=== PATIENT | male | born 1985 | race Caucasian/White ===

== ENCOUNTER → 2024-07-30 | Outpatient (CLI) | payer SELFPAY ==
--- NOTE | 2024-07-30 18:50 | CT_ITS ---
PROCEDURE: ABDOMEN/PELVIS WITHOUT CONT 07/30/2024 REASON FOR EXAM: DIARRHEA, LLQ PAIN TECHNIQUE: Abdomen and pelvis CT without intravenous contrast. Noncontrast technique limits evaluation of the abdominal and pelvic viscera. Coronal and Sagittal reconstruction series were provided. One or more dose reduction techniques were used (e.g., Automated exposure control, adjustment of the mA and/or kV according to patient size, use of iterative reconstruction technique). PATIENT PREPARATION: Per protocol ORAL CONTRAST TYPE: None. AMOUNT: mL COMPARISON: None. FINDINGS: Diffuse colonic diverticulosis. Mild thickening of the sigmoid colon, probably mild colitis/diverticulitis without perforation or abscess formation. Cholelithiasis without acute cholecystitis. Fat containing umbilical hernia without incarceration. Bilateral fat containing inguinal hernias without incarceration. Mild changes of central mesenteric panniculitis. Benign chronic finding. The visualized lung bases are unremarkable. Normal unenhanced liver. Normal extrahepatic biliary system. Normal unenhanced spleen. Normal pancreas. Normal bilateral adrenal glands. Normal size of the right kidney. There is no right renal mass. There are no right renal calculi. There is no right hydronephrosis. Normal visualized right ureter. Normal size of the left kidney. There is no left renal mass. There are no left renal calculi. There is no left hydronephrosis. Normal visualized left ureter. Normal visualized stomach. Normal small intestine. The appendix is visualized and appears normal. There is no demonstrated peritoneal fluid. Normal abdominal aorta. Normal inferior vena cava. Normal retroperitoneum. Normal urinary bladder. There is no pelvic mass lesion or lymphadenopathy. There is no pelvic fluid. CT/Abdomen/Pelvis without Cont IMPRESSION: Diffuse colonic diverticulosis. Mild thickening of the sigmoid colon, probably mild colitis/diverticulitis with out perforation or abscess formation. Cholelithiasis without acute cholecystitis. Fat containing umbilical hernia without incarceration. Bilateral fat containing inguinal hernias without incarceration. Reading Location: [facility]
== END | disposition home or self-care (01) ==
LOC: CT 18:53
PROVIDERS: PCP Nurse Practitioner Family; Referring Provider Nurse Practitioner Family; Visit Provider Nurse Practitioner Family
DX: R19.7 Diarrhea, unspecified (principal); R10.32 Left lower quadrant pain; K42.9 Umbilical hernia without obstruction or gangrene
CPT/HCPCS: 74176